=== PATIENT | female | born 1985 | race Caucasian/White ===

== ENCOUNTER 2018-11-18 08:21 | Emergency (ER) | payer MEDICAID ==
[~2018-11-18] VITALS: Ht 152.4 cm; Wt 64.9 kg
[2018-11-18 08:24] VITALS: BP 123/65; PULSE 93; RESP 16; Ht 152.4 cm; Wt 64.9 kg
[2018-11-18] MEDS ORDERED: ONDANSETRON (ODT) 4 MG TAB ODT STA (08:59)
[2018-11-18] MEDS ORDERED: ACETAMINOPHEN 325 MG TAB PO ONE (09:00)
[2018-11-18] MEDS ORDERED: ONDA8TAB14 PO (10:22)
[2018-11-18] MEDS ORDERED: ACET500C5 PO (10:22)
--- NOTE | 2018-11-18 10:27 | ERD ---
ER Documentation Chief Complaint Chief Complaint abdominal pain with heartburn,nausea and vomiting x 2 days HPI 33-year-old female presents with abdominal pain for last 2 days. No history of fevers. She points to her umbilical area. She said one episode of vomiting nonbilious nonbloody. She denies diarrhea, urinary complaints, lower abdominal pain. She denies , concern for STDs. She has a history of tubal ligation. ROS All systems reviewed and are negative except as per history of present illness. Medications Home Meds Active Scripts Ondansetron (Ondansetron Odt) 8 Mg Tab.rapdis, 8 MG PO Q6H PRN for NAUSEA AND/OR VOMITING, #8 TAB Prov:HARMONY HICKS MD 11/18/18 Acetaminophen* (Tylophen*) 500 Mg Capsule, 1 CAP PO Q6H PRN for PAIN AND OR ELEVATED TEMP, #15 CAP Prov:HARMONY HICKS MD 11/18/18 Allergies Allergies: Coded Allergies: No Known Allergy (Unverified , 11/18/18) PMhx/Soc Medical and Surgical Hx: pt denies Medical Hx History of Surgery: Yes (Tubal Ligation) Anesthesia Reaction: No Hx Alcohol Use: No Hx Substance Use: No Hx Tobacco Use: No Smoking Status: Never smoker FmHx Family History: No diabetes, No coronary disease, No other Physical Exam Vitals Vital Signs Date Temp Pulse Resp B/P (MAP) Pulse Ox O2 O2 Flow FiO2 Time Delivery Rate 11/18/18 98.0 93 16 123/65 100 08:24 (84) Physical Exam Const: No acute distress Head: Atraumatic Eyes: Normal Conjunctiva ENT: Normal External Ears, Nose and Mouth. Neck: Full range of motion. No meningismus. Resp: Clear to auscultation bilaterally Cardio: Regular rate and rhythm, no murmurs Abd: Soft, no tenderness in the midline periumbilical area. No tenderness at McBurney's point no Ibarra sign. No peritoneal signs. Non distended. Normal bowel sounds Skin: No petechiae or rashes Back: No midline or flank tenderness Ext: No cyanosis, or edema Neur: Awake and alert Psych: Normal Mood and Affect Result Diagram: 11/18/18 0908 11/18/18 0908 Results 24 hrs Laboratory Tests Test 11/18/18 09:03 11/18/18 09:08 Urine Color YELLOW Urine Clarity SLIGHTLY CLOUDY Urine pH 5.0 Urine Specific [place] 1.019 Urine Ketones TRACE mg/dL Urine Nitrite NEGATIVE mg/dL Urine Bilirubin NEGATIVE mg/dL Urine Urobilinogen NEGATIVE mg/dL Urine Leukocyte Esterase NEGATIVE Srinivasa/ul Urine Microscopic RBC 3 /HPF Urine Microscopic WBC 1 /HPF Urine Squamous Epithelial Cells FEW /HPF Urine Mucus FEW /HPF Urine Hemoglobin NEGATIVE mg/dL Urine Glucose NEGATIVE mg/dL Urine Total Protein NEGATIVE mg/dl Urine Test NEGATIVE White Blood Count 11.4 10^3/ul Red Blood Count 4.80 10^6/ul Hemoglobin 10.4 g/dl Hematocrit 34.9 % Mean Corpuscular Volume 72.7 fl Mean Corpuscular Hemoglobin 21.7 pg Mean Corpuscular Hemoglobin Concent 29.8 g/dl Red Cell Distribution Width 17.9 % Platelet Count 312 10^3/UL Mean Platelet Volume 9.4 fl Immature Granulocytes % 0.500 % Neutrophils % 79.1 % Lymphocytes % 11.6 % Monocytes % 7.3 % Eosinophils % 1.1 % Basophils % 0.4 % Nucleated Red Blood Cells % 0.0 /100WBC Immature Granulocytes # 0.060 10^3/ul Neutrophils # 9.0 10^3/ul Lymphocytes # 1.3 10^3/ul Monocytes # 0.8 10^3/ul Eosinophils # 0.1 10^3/ul Basophils # 0.1 10^3/ul Nucleated Red Blood Cells # 0.0 10^3/ul Sodium Level 142 mmol/L Potassium Level 4.0 mmol/L Chloride Level 104 mmol/L Carbon Dioxide Level 28 mmol/L Anion Gap 10 Blood Urea Nitrogen 12 mg/dl Creatinine 0.49 mg/dl Est Glomerular Filtrat Rate mL/min > 60 mL/min Glucose Level 116 mg/dl Calcium Level 9.4 mg/dl Total Bilirubin 0.5 mg/dl Direct Bilirubin 0.00 mg/dl Indirect Bilirubin 0.5 mg/dl Aspartate Amino Transf (AST/SGOT) 24 IU/L Alanine Aminotransferase (ALT/SGPT) 36 IU/L Alkaline Phosphatase 120 IU/L Total Protein 8.6 g/dl Albumin 4.7 g/dl Globulin 3.90 g/dl Albumin/Globulin Ratio 1.20 Lipase 11 U/L Current Medications Medications Dose Sig/Diana Start Time Status Last (Trade) Ordered Route PRN Stop Time Admin Dose Reason Admin 650 mg ONCE ONCE 11/18/18 DC 11/18/18 Acetaminophen PO 09:00 11/18/18 09:04 (Tylenol 09:01 Tab) Ondansetron 8 mg ONCE STAT 11/18/18 DC 11/18/18 HCl (Zofran ODT 08:59 11/18/18 09:03 Odt) 09:00 Procedures/MDM CBC shows minimal leukocytosis. CMP is normal. Urine shows no findings of infection or additional concerning acute abnormalities. HCG negative. Patient was given Zofran and Tylenol. Serial exam shows that pain is completely resolved and patient had a benign abdomen. Patient presents with vomiting and mid abdominal pain for last 2 days. She has no vomiting today. Her symptoms are resolved with Tylenol and Zofran. Patient may have viral gastroenteritis although early appendicitis certainly a consideration. He will be discharged home with Tylenol, Zofran, close observation return precautions in the next 8-12 hours for lower abdominal pain, vomiting despite treatment, fevers, new worsening symptoms. The patient was stable with no new complaints during the ER course. Clinically, there is no current evidence to suggest meningitis, sepsis, acute abdomen, pneumonia, stroke, acute coronary syndrome, pulmonary embolism, aortic dissection or any other emergent condition appearing to require further evaluation or hospitalization. Patient counseled regarding my diagnostic impression and care plan. Prior to discharge all questions answered. Pt agrees with treatment plan and understands strict return precautions. Pt is instructed to follow up with primary care provider within 24-48 hours. Precautionary instructions provided including instructions to return to the ER if not improving or for any worsening or changing symptoms or concerns. Departure Diagnosis: Primary Impression: Vomiting Vomiting type: unspecified Vomiting Intractability: unspecified Nausea presence: unspecified Qualified Codes: R11.10 - Vomiting, unspecified Additional Impression: Abdominal pain Abdominal location: generalized Qualified Codes: R10.84 - Generalized abdominal pain Condition: Stable Patient Instructions: Abdominal Pain, Abdominal Pain, Possible Appendicitis (Female), Vomiting (6Y-Adult) Additional Instructions: Horita los examines dice no tiene appendicits o emferma mal, andrzej es importante coma esta en el proximo alesia. chequ 8-12 horas par mas dolor, especialamente derecho y abajo vomito , fiebre, nueva simptomas. HARMONY HICKS MD Nov 18, 2018 10:27
== END 2018-11-18 10:40 | disposition home or self-care (01) ==
LOC: FTE 08:21
DX: R11.2 Nausea with vomiting, unspecified (principal); R10.84 Generalized abdominal pain
CPT/HCPCS: 36415; 80053; 81001; 83690; 84703; 85025; Z7502; Z7610; 81003; 99283